=== PATIENT | male | born 1975 ===

== ENCOUNTER 2019-07-07 08:46 | Emergency (ER) | payer OTHER ==
--- NOTE | 2019-07-07 10:29 | Emergency Department Report ---
ED General Adult HPI - General Chief complaint: Upper Respiratory Infection Stated complaint: LFT SIDE FACE PAIN/SINUS PRESSURE Time Seen by Provider: 07/07/19 10:24 Source: patient Mode of arrival: Ambulatory Limitations: No Limitations - History of Present Illness Initial comments: 43-year-old -[place] male patient complains of left-sided facial pain and pressure for the past 2 days. He reports brown malodorous drainage from his left near. He denies any fever, but admits to body aches and chills. Patient states a history of recurrent sinus infections. He states he has a follow-up with the ENT specialist at the end of this month. Rates his pain as a 9/10 in severity. He denies any vision changes or headache. MD Complaint: Sinus pain -: Sudden Location: face, left Severity scale (0 -10): 9 Quality: aching Consistency: constant Improves with: none Worsens with: other (leaning forward ) Associated Symptoms: malaise. denies: cough, headaches, loss of appetite, shortness of breath Treatments Prior to Arrival: none - Related Data Previous Rx's Medication Instructions Recorded Last Taken Type Amoxicillin/Potassium Clav 1 each PO BID 10 Days #20 tablet 07/07/19 Unknown Rx [Augmentin 875-125 Tablet] Prednisone [predniSONE 10 mg 10 mg PO .TAPER #1 tab.ds.pk 07/07/19 Unknown Rx (6-Day Pack, 21 Tabs)] Allergies Allergy/AdvReac Type Severity Reaction Status Date / Time No Known Allergies Allergy Unverified 07/07/19 09:01 ED Review of Systems ROS: Stated complaint: LFT SIDE FACE PAIN/SINUS PRESSURE Other details as noted in HPI Comment: All other systems reviewed and negative Constitutional: chills, malaise Eyes: denies: eye pain, eye discharge, vision change ENT: as per HPI ED Past Medical Hx - Past Medical History Previous Medical History?: No - Surgical History Past Surgical History?: No - Social History Smoking Status: Current Every Day Smoker Substance Use Type: None - Medications Home Medications: Home Medications Medication Instructions Recorded Confirmed Last Taken Type Amoxicillin/Potassium Clav 1 each PO BID 10 Days #20 tablet 07/07/19 Unknown Rx [Augmentin 875-125 Tablet] Prednisone [predniSONE 10 mg 10 mg PO .TAPER #1 tab.ds.pk 07/07/19 Unknown Rx (6-Day Pack, 21 Tabs)] ED Physical Exam - General Limitations: No Limitations General appearance: alert, in no apparent distress - Head Head exam: Present: atraumatic, normocephalic - Eye Eye exam: Present: normal appearance, PERRL, EOMI. Absent: scleral icterus - ENT ENT exam: Present: normal orophraynx, TM's normal bilaterally, other (significant tenderness to palpation over the left maxillary and frontal sin uses. No overlying erythema noted. Left turbinates are erythematous and swollen.) - Expanded ENT Exam Expanded Mouth exam: Absent: trismus Throat exam: Negative: tonsillar erythema, tonsillar exudate - Neck Neck exam: Present: normal inspection. Absent: meningismus, lymphadenopathy - Respiratory Respiratory exam: Present: normal lung sounds bilaterally. Absent: respiratory distress - Cardiovascular Cardiovascular Exam: Present: regular rate, normal rhythm. Absent: systolic murmur, diastolic murmur, rubs, gallop - Rectal Rectal exam: Present: deferred - Neurological Exam Neurological exam: Present: alert, oriented X3, normal gait - Psychiatric Psychiatric exam: Present: normal affect, normal mood - Skin Skin exam: Present: warm, dry, intact, normal color. Absent: rash ED Course Vital Signs 07/07/19 09:05 Temperature 98.2 F Pulse Rate 85 Respiratory 20 Rate Blood Pressure 150/107 O2 Sat by Pulse 99 Oximetry ED Medical Decision Making - Medical Decision Making Patient here with symptoms of a sinus infection. Has history of recurrent sinus infections requiring antibiotic treatment. He denies history of diabetes or HIV. Patient does have follow-up with ENT at the end of this month. We'll treat as bacterial infection given symptoms and history. Patient to follow with ENT sooner as needed. Discussed strict return precautions in detail with patient who states understanding. Critical care attestation.: If time is entered above; I have spent that time in minutes in the direct care of this critically ill patient, excluding procedure time. ED Disposition Clinical Impression: Left maxillary sinusitis Disposition: DC-01 TO HOME OR SELFCARE Is pt being admited?: No Condition: Stable Instructions: Sinusitis (ED) Additional Instructions: Please follow-up with your ear nose throat doctor as scheduled. Prescriptions: Amoxicillin/Potassium Clav [Augmentin 875-125 Tablet] 1 each PO BID 10 Days #20 tablet Prednisone [predniSONE 10 mg (6-Day Pack, 21 Tabs)] 10 mg PO .TAPER #1 tab.ds.pk
[2019-07-07 10:49] VITALS: BP 144/86
== END 2019-07-07 10:49 | disposition home or self-care (01) ==
LOC: ED 08:46
DX: J32.0 Chronic maxillary sinusitis (principal); M79.10 Myalgia, unspecified site; R68.83 Chills (without fever); F17.200 Nicotine dependence, unspecified, uncomplicated; Z79.899 Other long term (current) drug therapy
CPT/HCPCS: 99281